=== PATIENT | female | born 1985 | race Caucasian/White ===

== ENCOUNTER 2019-02-09 07:34 | Day surgery (SDC) | payer OTHER ==
[~2019-02-09 07:34] MED LIST: Lactated Ringers 1,000 ML IV SCH
[2019-02-09] MEDS ORDERED: fentaNYL 100 MCG/2 ML SDV ONE (08:47)
[2019-02-09] MEDS ORDERED: Propofol 200 MG/20 ML SDV ONE (08:47)
--- NOTE | 2019-02-09 11:53 | OR ---
REFERRING PROVIDER: Yareils Padron PA-C. PRE-OPERATIVE DIAGNOSES: 1. Chronic abdominal pain, bloating, and gas. 2. Alternating constipation and diarrhea. 3. Unintentional weight loss with 12 pounds weight loss since November. 4. Occasional blood on the toilet paper when wiping. 5. No family history of any colon cancer or inflammatory bowel disease. POST-OPERATIVE DIAGNOSIS: Normal-appearing distal ileum and colon. Random biopsies were taken from distal ileum as well as from the colon. PROCEDURE: Colonoscopy with biopsy x2 sites using cold forceps (distal ileum and random colon. ANESTHESIA: Monitored anesthesia care. BOWEL PREP: Good. DESCRIPTION OF PROCEDURE: Sonia is a 34-year-old female who was brought to the endoscopy suite after discussing risks and benefits of the procedure. Informed consent was obtained for conscious sedation and colonoscopy with or without biopsy and/or polypectomy. We also discussed possibility of missed lesions. Pre-procedure exam was unremarkable. IV, oxygen, and monitors were placed. The patient was placed in the left lateral decubitus position. Sedation was administered and a digital rectal exam was performed and unremarkable. Colonoscope was passed into the rectum and slowly advanced all the way to the cecum. Cecum was viewed and photographed. Ileocecal valve was intubated and distal ileum was normal in appearance. There may have been some minimal if any irritation to the mucosa. Cold biopsy x2 bites taken. Colonoscope was then slowly withdrawn. Mucosa closely observed in a direct circumferential manner. Random biopsies were taken from each segment including the rectal area. The ascending colon unremarkable. Transverse colon unremarkable. Descending colon unremarkable. Sigmoid colon unremarkable. Retroflexion was performed. Rectal mucosa unremarkable. Scope was removed. The patient tolerated the procedure well. The patient was monitored until that baseline status. Discharge instructions were reviewed and the patient was discharged in good condition. COMPLICATIONS: None. TOTAL TIME: 19 minutes. ESTIMATED BLOOD LOSS: About 1 mL. RECOMMENDATIONS/FOLLOW-UP: The patient has normal-appearing distal ileum and colon. We will await results of the random biopsies to see if any additional evaluation and/or treatment needed. I would like to kindly thank Yarelis Padron for this referral. DMB: 02/09/2019 09:26:20 MODL: 02/09/2019 11:38:15 /[id number]
== END 2019-02-09 10:30 | disposition home or self-care (01) ==
LOC: VM.SDS 07:34
PROVIDERS: ATTEND Family Medicine
DX: R10.11 Right upper quadrant pain (principal); K59.04 Chronic idiopathic constipation; R19.7 Diarrhea, unspecified; R63.4 Abnormal weight loss; R14.0 Abdominal distension (gaseous); F41.9 Anxiety disorder, unspecified; F41.8 Other specified anxiety disorders; G43.909 Migraine, unspecified, not intractable, without status migrainosus; Z68.21 Body mass index [BMI] 21.0-21.9, adult; Z87.891 Personal history of nicotine dependence; Z79.899 Other long term (current) drug therapy
CPT/HCPCS: 81025; J2704; J3010; J7120

== ENCOUNTER 2020-11-17 09:37 | Emergency (ER) | payer BC, OTHER ==
[2020-11-17] MEDS ORDERED: methylPREDNISolone Sodium Succinate 125 MG/2 ML SDV IM ONE (09:56)
[2020-11-17] MEDS ORDERED: Take Home: predniSONE 20 MG, 2 Tab Pack PO ONE (09:57)
[2020-11-17] MEDS ORDERED: hydrOXYzine HCl 25 MG Tab PO ONE (09:58)
--- NOTE | 2020-11-17 10:01 | EDM.PDOC ---
ED HPI GENERAL MEDICAL PROBLEM - General Chief Complaint: Skin Complaint Stated Complaint: ER VISIT Time Seen by Provider: 11/17/20 09:50 Source of Information: Reports: Patient History Limitations: Reports: No Limitations - History of Present Illness INITIAL COMMENTS - FREE TEXT/NARRATIVE: Patient comes emergency department today with complaints of a rash on her arms legs and abdomen that is very pruritic in nature. This patient has not any change in medication or exposure to any different allergens. No different foods soaps or lotions. For the past day or so she has developed a very intense itchy rash primarily on her arms legs and trunk. She has been taking Benadryl with minimal improvement. She has been placing calamine lotion on it with minimal improvement. She has no difficulty breathing cough congestions or shortness of breath. No weakness dizziness lightheadedness. She has not had any recent procedure. She has no immunocompromise state. No Covid exposure no Covid symptoms. Generalized Pain Score (Numeric/FACES): 4 - Related Data Allergies Allergy/AdvReac Type Severity Reaction Status Date / Time seasonal Allergy Cannot Uncoded 11/17/20 09:47 Remember Home Meds: Home Meds ALPRAZolam [Alprazolam] 0.25 mg PO Q8H PRN 02/07/19 [History] Docusate Sodium [Colace] 100 mg PO BID 02/07/19 [History] Gabapentin [Neurontin] 300 mg PO Q6H PRN 02/07/19 [History] Magnesium 500 mg PO DAILY 02/07/19 [History] Non-Formulary Medication [NF Drug] 1 spray GOSIA ASDIRECTED PRN 02/07/19 [History] Ondansetron [Zofran] 4 mg PO Q6H PRN 02/07/19 [History] Pnv No.95/Ferrous Fum/Folic AC [ Vitamin Tablet] 1 each PO DAILY 02/07/19 [History] Sertraline [Zoloft] 50 mg PO DAILY 02/07/19 [History] Topiramate [Topamax] 50 mg PO BID 02/07/19 [History] buPROPion [buPROPion XL] 450 mg PO DAILY 02/07/19 [History] tiZANidine [Zanaflex] 2 - 4 mg PO Q8H PRN 02/07/19 [History] predniSONE [Prednisone] 60 mg PO DAILY 4 Days #12 tablet 11/17/20 [Rx] Past Medical History - Past Health History Medical/Surgical History: Denies Medical/Surgical History HEENT History: Reports: Allergic Rhinitis Other HEENT History: chronic allergic conjunctivitis Other Respiratory History: reactive airway disease that is not asthma Gastrointestinal History: Reports: Chronic Constipation Other Genitourinary History: dysplasia of cervix Neurological History: Reports: Migraines Other Neuro History: tension headache Psychiatric History: Reports: Anxiety, Depression Other Psychiatric History: polysubstance abuse (HCC). dysthymic disorder. former smoker Other Dermatologic History: acne - Past Surgical History HEENT Surgical History: Reports: LASIK Other HEENT Surgeries/Procedures: teeth extraction Other Female Surgeries/Procedures: breast implant Social & Family History - Tobacco Use Tobacco Use Status *Q: Former Tobacco User Used Tobacco, but Quit: Yes Month/Year Tobacco Last Used: 2014 ED ROS GENERAL - Review of Systems Review Of Systems: Comprehensive ROS is negative, except as noted in HPI. ED EXAM, SKIN/RASH Exam: See Below Exam Limited By: No Limitations General Appearance: Alert, WD/WN, No Apparent Distress Eye Exam: Bilateral Eye: EOMI, PERRL Ears: Normal External Exam Nose: Normal Inspection Throat/Mouth: Normal Inspection, Normal Lips, Normal Teeth, Normal Oropharynx, Normal Voice, No Airway Compromise Head: Atraumatic, Normocephalic Neck: Normal Inspection, Supple, Non-Tender Respiratory/Chest: No Respiratory Distress, Lungs Clear, Normal Breath Sounds, No Accessory Muscle Use, Chest Non-Tender Cardiovascular: Normal Peripheral Pulses, Regular Rate, Rhythm GI/Abdominal: Normal Bowel Sounds, Soft Back Exam: Normal Inspection (no rash) Extremities: No: Normal Inspection (She has a very small papular confluent rash on the proximal aspects of bilateral humerus as well as her abdomen and her anterior thighs. These are actually quite confluent and developed into large plaques. This is not perfect hives in nature as they are not perfect welts they are very small papules in nature. There is no exudate. There is no pustules. There is no generalized erythema induration or swelling surrounding these areas of the rash.) Neurological: Alert, Oriented Psychiatric: Normal Affect, Normal Mood Skin: Warm, Dry, Intact. No: No Rash (Rash as described above) Course - Vital Signs Last Recorded V/S: Last Vital Signs Temp 97.3 F 11/17/20 09:30 Pulse 67 11/17/20 09:30 Resp 16 11/17/20 09:30 BP 121/81 11/17/20 09:30 Pulse Ox 100 11/17/20 09:30 - Orders/Labs/Meds Meds: Medications Discontinued Medications Generic Name Dose Route Start Last Admin Trade Name [place] PRN Reason Stop Dose Admin Hydroxyzine HCl 150 mg 11/17/20 09:58 11/17/20 10:39 Atarax PO 11/17/20 09:59 Not Given ONETIME ONE Methylprednisolone Sodium Succinate 125 mg 11/17/20 09:56 11/17/20 10:12 Solu-Medrol IM 11/17/20 09:57 125 mg ONETIME ONE Administration Prednisone 2 packet 11/17/20 09:57 11/17/20 10:12 Take Home: Prednisone 20 Mg, 2 Tab Pack PO 11/17/20 09:58 2 packet ONETIME ONE Administration - Re-Assessments/Exams Free Text/Narrative Re-Assessment/Exam: 11/17/20 Although she has not had any change in medications or any allergic exposure. This is most likely some type of allergic reaction. Is not perfectly hives with wheals and welts as it typically would be. I does not appear to be infectious. It is clearly inflammatory. We will treat her with hydroxyzine for pruritus as well as prednisone. We gave her a shot of Solu-Medrol IM prior to discharge. We will give her further prednisone for today. Anything new or worse she is to recheck. Especially if she comes short of breath difficulty breathing difficulty swallowing or drooling. She is understanding of this and her questions are answered. Departure - Departure Time of Disposition: 11:05 Disposition: Home, Self-Care 01 Clinical Impression: Allergic reaction Qualifiers: Encounter type: initial encounter Qualified Code(s): T78.40XA - Allergy, unspecified, initial encounter - Discharge Information Prescriptions: predniSONE [Prednisone] 60 mg PO DAILY 4 Days #12 tablet Instructions: Hives, [id number] Referrals: Yarelis Padron PA-C [Primary Care Provider] - Forms: ED Department Discharge Additional Instructions: Prednisone 60mg daily for the next 5 days. Take home pack sent home the ED. Sta rt at 4pm today. Rx sent to [facility]. For the Itching, Hydroxyzine 1 tablet three times a day as needed for itching. 3 tabs sent home from the ED. Otherwise Benadryl OTC as needed for itching caution sedation. You may also use Zyrtec Ivonne OTC as needed for none sedating itching relief. Return to the ED if new or worsening symptoms especially if any difficulty breathing swelling in the mouth throat or difficulty swallowing. Recheck with PCP in the next 4-6 days if not improving sooner if worse or not not improving. Sepsis Event Note (ED) - Evaluation Sepsis Screening Result: No Definite Risk - Focused Exam Vital Signs: Vital Signs Temp Pulse Resp BP Pulse Ox 11/17/20 09:30 97.3 F 67 16 121/81 100
== END 2020-11-17 10:20 | disposition home or self-care (01) ==
LOC: VM.ED 09:37
DX: T78.40XA Allergy, unspecified, initial encounter (principal); Z87.891 Personal history of nicotine dependence; Z88.8 Allergy status to other drugs, medicaments and biological substances
CPT/HCPCS: 96372; 99282; 99283; J2930; J7512